=== PATIENT | male | born 1995 | race American Indian/Alaskan Native ===

== ENCOUNTER 2021-06-08 19:13 | Emergency (ER) | payer OTHER ==
[2021-06-08 20:19] LABS: Bilirubin,Urine NEG (Negative); Blood,Urine NEG (Negative); Color,Urine Yellow (Yellow); Mucus,Urine 3+ /HPF
[2021-06-08 20:20] LABS: Amphetamine Screen,Urine Negative; Benzodiazepines Screen,Urine Negative; Cocaine Screen,Urine Negative; Methadone Screen,Urine Negative; Opiate Screen,Urine Negative
[2021-06-08 20:25] LABS: Basophils % (Auto) 0.5 % (0.0-1.8); Eosinophils # (Auto) 0.1 K/mm3 (0.0-0.4); Hematocrit 47.9 % (35.5-45.6); Hemoglobin 15.1 gm/dl (11.8-15.2); Lymphocytes # (Auto) 1.4 K/mm3 (1.2-5.4); Lymphocytes % (Auto) 21.1 % (13.4-35.0); Mean Corpuscular HGB Conc 32 % (32-34); Mean Corpuscular Volume 90 fl (84-94); Monocytes # (Auto) 0.4 K/mm3 (0.0-0.8); Monocytes % (Auto) 5.9 % (0.0-7.3); Platelet Count 234 K/mm3 (140-440); Red Blood Count 5.33 M/mm3 (3.65-5.03); Red Cell Distribution Width 13.4 % (13.2-15.2)
[2021-06-08 20:32] LABS: BUN/Creatinine Ratio 12; Blood Urea Nitrogen 11 mg/dL (9-20); Calcium 9.7 mg/dL (8.4-10.2); Hemolysis Index 16
[2021-06-08 21:18] LABS: Cannabinoid Screen,Urine Positive
[2021-06-08] MEDS: NITROFURANTOIN MONOHYD/M-CRYST 100 MG CAP PO SCH (23:11)
--- NOTE | 2021-06-08 23:17 | Emergency Department Report ---
HPI - General Chief Complaint: Psych Time Seen by Provider: 06/08/21 19:51 - HPI HPI: This is a 25-year-old -[place] male presents to the emergency department for any mental-health evaluation with a complaint of suicidal ideations in which he was going to walk out into traffic. The patient also admits to cutting himself on his legs with a knife yesterday. When asked if there was any type of precipitating event, the patient said "marriage problems." He denies any medical or psychiatric history. He denies any auditory or visual hallucinati ons, or any homicidal ideations. ED Past Medical Hx - Past Medical History Previous Medical History?: Yes Additional medical history: STOMACH ULCERS - Surgical History Past Surgical History?: Yes Additional Surgical History: RIGHT HAND BOXERS FRACTURE - Social History Smoking Status: Unknown if ever smoked Substance Use Type: None ED Review of Systems ROS: Stated complaint: PSYCH Other details as noted in HPI Comment: All other systems reviewed and negative Constitutional: denies: chills, fever Respiratory: denies: cough, shortness of breath Cardiovascular: denies: chest pain, palpitations Gastrointestinal: denies: abdominal pain, vomiting Musculoskeletal: denies: back pain, arthralgia Skin: other (leg abrasions). denies: rash Neurological: denies: headache, weakness Psychiatric: depression, suicidal thoughts. denies: auditory hallucinations, visual hallucinations, homicidal thoughts Physical Exam - Physical Exam Vital Signs: Vital Signs 06/08/21 06/08/21 19:34 19:54 Temperature 98 F Pulse Rate 76 Respiratory 18 Rate Blood Pressure 130/70 [Right] O2 Sat by Pulse 98 98 Oximetry Physical Exam: GENERAL: The patient is well-developed well-nourished. HENT: Normocephalic. Atraumatic. Patient has moist mucous membranes. EYES: Extraocular motions are intact. NECK: Supple. Trachea is midline. CHEST/LUNGS: Clear to auscultation. There is no respiratory distress noted. HEART/CARDIOVASCULAR: Regular. There is no tachycardia. There is no murmur. ABDOMEN: Abdomen is soft, nontender. Patient has normal bowel sounds. SKIN: Skin is warm and dry. Multiple superficial abrasions to the bilateral thigh. NEURO: The patient is awake, alert, and oriented. The patient is cooperative. The patient has no focal neurologic deficits. Normal speech. MUSCULOSKELETAL: There is no tenderness or deformity. There is no limitation range of motion. ED Course Vital Signs 06/08/21 06/08/21 19:34 19:54 Temperature 98 F Pulse Rate 76 Respiratory 18 Rate Blood Pressure 130/70 [Right] O2 Sat by Pulse 98 98 Oximetry ED Medical Decision Making - Lab Data Result diagrams: 06/08/21 20:01 06/08/21 20:01 Lab Results 06/08/21 06/08/21 06/08/21 Range/Units 20:01 20:01 20:01 WBC 6.9 (4.5-11.0) K/mm3 RBC 5.33 H (3.65-5.03) M/mm3 Hgb 15.1 (11.8-15.2) gm/dl Hct 47.9 H (35.5-45.6) % MCV 90 (84-94) fl MCH 28 (28-32) pg MCHC 32 (32-34) % RDW 13.4 (13.2-15.2) % Plt Count 234 (140-440) K/mm3 Lymph % (Auto) 21.1 (13.4-35.0) % [place] % (Auto) 5.9 (0.0-7.3) % Eos % (Auto) 1.0 (0.0-4.3) % Baso % (Auto) 0.5 (0.0-1.8) % Lymph # (Auto) 1.4 (1.2-5.4) K/mm3 [place] # (Auto) 0.4 (0.0-0.8) K/mm3 Eos # (Auto) 0.1 (0.0-0.4) K/mm3 Baso # (Auto) 0.0 (0.0-0.1) K/mm3 Seg Neutrophils % 71.5 H (40.0-70.0) % Seg Neutrophils # 4.9 (1.8-7.7) K/mm3 Sodium 136 L (137-145) mmol/L Potassium 3.7 (3.6-5.0) mmol/L Chloride 98.9 (98-107) mmol/L Carbon Dioxide 26 (22-30) mmol/L Anion Gap 15 mmol/L BUN 11 (9-20) mg/dL Creatinine 0.9 (0.8-1.3) mg/dL Estimated GFR > 60 ml/min BUN/Creatinine Ratio 12 % Glucose 103 H (75-100) mg/dL Calcium 9.7 (8.4-10.2) mg/dL Urine Color (Yellow) Urine Turbidity (Clear) Urine pH (5.0-7.0) Ur Specific [place] (1.003-1.030) Urine Protein (Negative) mg/dL Urine Glucose (UA) (Negative) mg/dL Urine Ketones (Negative) mg/dL Urine Blood (Negative) Urine Nitrite (Negative) Urine Bilirubin (Negative) Urine Urobilinogen (<2.0) mg/dL Ur Leukocyte Esterase (Negative) Urine WBC (Auto) (0.0-6.0) /HPF Urine RBC (Auto) (0.0-6.0) /HPF Urine Mucus /HPF Urine Opiates Screen Urine Methadone Screen Ur Barbiturates Screen Ur Phencyclidine Scrn Ur Amphetamines Screen U Benzodiazepines Scrn Urine Cocaine Screen U Marijuana (THC) Screen Drugs of Abuse Note Plasma/Serum Alcohol < 0.01 (0-0.07) % 06/08/21 06/08/21 Range/Units Unknown Unknown WBC (4.5-11.0) K/mm3 RBC (3.65-5.03) M/mm3 Hgb (11.8-15.2) gm/dl Hct (35.5-45.6) % MCV (84-94) fl MCH (28-32) pg MCHC (32-34) % RDW (13.2-15.2) % Plt Count (140-440) K/mm3 Lymph % (Auto) (13.4-35.0) % [place] % (Auto) (0.0-7.3) % Eos % (Auto) (0.0-4.3) % Baso % (Auto) (0.0-1.8) % Lymph # (Auto) (1.2-5.4) K/mm3 [place] # (Auto) (0.0-0.8) K/mm3 Eos # (Auto) (0.0-0.4) K/mm3 Baso # (Auto) (0.0-0.1) K/mm3 Seg Neutrophils % (40.0-70.0) % Seg Neutrophils # (1.8-7.7) K/mm3 Sodium (137-145) mmol/L Potassium (3.6-5.0) mmol/L Chloride (98-107) mmol/L Carbon Dioxide (22-30) mmol/L Anion Gap mmol/L BUN (9-20) mg/dL Creatinine (0.8-1.3) mg/dL Estimated GFR ml/min BUN/Creatinine Ratio % Glucose (75-100) mg/dL Calcium (8.4-10.2) mg/dL Urine Color Yellow (Yellow) Urine Turbidity Clear (Clear) Urine pH 5.0 (5.0-7.0) Ur Specific [place] 1.030 (1.003-1.030) Urine Protein 30 mg/dl (Negative) mg/dL Urine Glucose (UA) Neg (Negative) mg/dL Urine Ketones Tr (Negative) mg/dL Urine Blood Neg (Negative) Urine Nitrite Neg (Negative) Urine Bilirubin Neg (Negative) Urine Urobilinogen 2.0 (<2.0) mg/dL Ur Leukocyte Esterase Sm (Negative) Urine WBC (Auto) 28.0 H (0.0-6.0) /HPF Urine RBC (Auto) 1.0 (0.0-6.0) /HPF Urine Mucus 3+ /HPF Urine Opiates Screen Negative Urine Methadone Screen Negative Ur Barbiturates Screen Negative Ur Phencyclidine Scrn Negative Ur Amphetamines Screen Negative U Benzodiazepines Scrn Negative Urine Cocaine Screen Negative U Marijuana (THC) Screen Positive Drugs of Abuse Note Disclamer Plasma/Serum Alcohol (0-0.07) % - Medical Decision Making This patient presents to the emergency department with suicidal ideations with a plan to walk out into traffic, and some recent self-inflicted wounds to the thigh. For these reasons the patient has been placed on a 1013. Labs have been mostly unremarkable including CBC, metabolic panel, blood alcohol level. The patient has a mild urinary tract infection seen on urinalysis. Vital signs have been reassuring throughout his ED course. The patient was seen by the psychiatric splitter operator who agrees with the plan for a 1013 and inpatient stabilization. The patient is medically cleared for psychiatric placement. Critical Care Time: No Critical care attestation.: If time is entered above; I have spent that time in minutes in the direct care of this critically ill patient, excluding procedure time. ED Disposition Clinical Impression: Suicidal ideations Depression Qualifiers: Depression Type: unspecified Qualified Code(s): F32.A - Depression, unspecified UTI (urinary tract infection) Qualifiers: Urinary tract infection type: acute cystitis Hematuria presence: without hematuria Qualified Code(s): N30.00 - Acute cystitis without hematuria Disposition: [address] [place] [address] Is pt being admited?: No Condition: Stable Time of Disposition: 00:59
[2021-06-09] MEDS: NITROFURANTOIN MONOHYD/M-CRYST 100 MG CAP PO SCH (10:03)
--- NOTE | 2021-06-09 13:27 | Event Note ---
Date: 06/09/21 S: No events reported overnight O: Vital Signs - 8 hr 06/09/21 06/09/21 08:59 09:26 Temperature 98.2 F Pulse Rate 71 Respiratory 18 Rate Blood Pressure 127/64 [Right] O2 Sat by Pulse 98 96 Oximetry A: Suicidal ideation P: 1013/awaiting inpatient psych
[2021-06-09 13:53] VITALS: BP 138/88
--- NOTE | 2021-06-09 14:28 | Consultation ---
History of Present Illness - Reason for Consult Consult date: 06/09/21 Reason for consult: SI, depression - History of Present Psychiatric Illness The patient was seen today. He was brought to the ER for walking in traffic. During the evaluation the patient is calm, and cooperative. He appears depressed and is slightly tearful at times. He makes poor eye contact. He says he's here because he made some silly decisions. The patient then says he walked into traffic. He says "I was trying to get a reaction from my ." The patient says cars were dodging him. I discussed with the patient the consequences of his actions and how impulsive that was. The patient says that was the first time he'd done something like that. He verbalizes feeling depressed and not sleeping. The patient doesn't appear to be totally upfront about how he feels. He initially tells me that he's never been diagnosed with any psych disorders, nor been on any psych meds. He then later says that his mother is a nurse practitioner and she prescribed him something for anxiety and depression. The patient also denies any behaviors of self harm, but later reading the note he has cut himself before. The patient says he has two boys and wasn't trying to kill himself. He denies hallucinations. He denies illicit drug use, alcohol or nicotine. Diagnoses: Denies Suicide attempts or Self-harm behavior: Denies Prior psychiatric hospitalizations: Denies Substance Abuse history: Denies Previous psychiatric medications tried: Denies Outpatient treatment: unknown PAST MEDICAL HISTORY: unknown Family Psychiatric History: None reported or documented SOCIAL HISTORY Marital Status: Living Arrangements: Spouse Employment Status: unemployed Access to guns/weapons: Denies Education: History of Abuse: none reported Legal History: none reported REVIEW OF SYSTEMS Constitutional: Negative for weight loss ENT: Negative for stridor Respiratory: Negative for cough or hemoptysis All other systems reviewed and are negative MENTAL STATUS EXAMINATION General Appearance and Behavior: Age appropriate, good hygiene, wearing appropriate clothes, calm, cooperative Cooperation: Participating/engaged Psychomotor Behavior: Tremors Mood: depressed Affect and affective range: congruent with mood, sad, tearful at times Thought Process: goal directed Thought Content: None Speech: Normal volume, Regular rate and rhythm, Suicidal Ideation: Denies Homicidal Ideation: Denies Hallucinations: Denies Delusions: None elicited Impulse Control: impaired Insight and Judgment: Limited insight and judgment, Memory: Limited Attention: Normal Orientation: Alert, oriented Assessment and Plan (1) Major Depressive Disorder Current Visit: Yes Status: Acute Treatment 1013 Medical: per primary Sitter: per primary Disposition: Recommend acute psychiatric inpatient treatment Will follow. Thanks Case staffed with Dr. Shaw Medications and Allergies Allergies Allergy/AdvReac Type Severity Reaction Status Date / Time No Known Allergies Allergy Unverified 06/08/21 19:36 Home Medications Medication Instructions Recorded Confirmed Last Taken Type No Known Home Medications [No 06/09/21 06/09/21 Unknown History Reported Home Medications] Mental Status Exam - Vital signs Last Vital Signs Temp 98.2 F 06/09/21 09:26 Pulse 82 06/09/21 13:35 Resp 20 06/09/21 13:35 BP 138/88 06/09/21 13:35 Pulse Ox 100 06/09/21 13:35 Results Result Diagrams: 06/08/21 20:01 06/08/21 20:01 Abnormal lab results 06/08/21 06/08/21 06/08/21 Range/Units 20:01 20:01 Unknown RBC 5.33 H (3.65-5.03) M/mm3 Hct 47.9 H (35.5-45.6) % Seg Neutrophils % 71.5 H (40.0-70.0) % Sodium 136 L (137-145) mmol/L Glucose 103 H (75-100) mg/dL Urine WBC (Auto) 28.0 H (0.0-6.0) /HPF All other labs normal.
== END 2021-06-09 13:35 ==
LOC: ED 19:13
DX: R45.851 Suicidal ideations (principal); F32.A Depression, unspecified; N39.0 Urinary tract infection, site not specified; Z98.890 Other specified postprocedural states; Z20.822 Contact with and (suspected) exposure to COVID-19
CPT/HCPCS: 36415; 80048; 80307; 81001; 85025; 87086; 99285; U0003; 80320; G0480